=== PATIENT | female | born 2000 | race Caucasian/White ===

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

== ENCOUNTER 2022-05-16 22:43 | Emergency (ER) | payer BC, MEDICAID ==
[~2022-05-16] VITALS: Ht 165.1 cm; Wt 65.9 kg
[~2022-05-16 22:43] MED LIST: BACTRIM DS 8001 TAB PO; FLEXERIL 1010 MG/TAB PO; KLONOPIN WAFER0.5 MG PO; LEXAPRO 10MG10 MG PO; PROAIR HFA0.09 MG/AC IH; PROZAC 20MG20 MG PO; TYLENOL PM EXTR1 TA1 PO; ULTRAM 50MG TAB50 MG PO; XANAX .25M0.25 MG/TA PO; ZOFRAN ODT4 MG PO
[2022-05-16 23:24] LABS: BASO % 0.2 % (0.0-2.0); EOS % 0.2 % (0.0-4.0); GRAN # 4.4 K/mm3 (1.4-6.5); HEMATOCRIT 34.9 % (37.0-47.0); HEMOGLOBIN 11.9 g/dl (12.5-16.0); LYMPH # 1.5 K/mm3 (1.2-3.4); LYMPH % 22.5 % (20.0-51.0); MEAN CELL VOLUME 83 fl (80.0-100.0); MEAN CORPUSCULAR HEMOGLOBIN 28 pg (27-31); MEAN CORPUSCULAR HGB CONC 34 g/dl (33.0-37.0); MEAN PLATELET VOLUME 9.4 fl (7.4-10.4); MONO # 0.7 K/mm3 (0.1-0.6); MONO % 9.9 % (1.7-9.3); PLATELET COUNT 169 K/mm3 (130-400); RED BLOOD COUNT 4.22 M/mm3 (4.10-5.30); REDCELL DISTRIBUTION WIDTH-CV 12.5 % (11.5-14.5)
[2022-05-16 23:44] LABS: CREATININE, serum 0.79 mg/dL (0.57-1.11); POTASSIUM 3.2 mmol/L (3.5-4.5)
[2022-05-17] MEDS ORDERED: PEN-VEE K500 MG PO (01:10)
[2022-05-17 01:20] VITALS: BP 134/81; PULSE 90; TEMP 99.3
[2022-09-17] MEDS ORDERED: EMGALITY120 MG/1 M SQ (15:28)
== END 2022-05-17 01:25 | disposition home or self-care (01) ==
LOC: COL.ER 22:43
PROVIDERS: Physician Assistant
DX: J03.90 Acute tonsillitis, unspecified (principal); F41.9 Anxiety disorder, unspecified; D64.9 Anemia, unspecified; Z98.890 Other specified postprocedural states
CPT/HCPCS: J0171; J1885; J2060; J2405; J7030